=== PATIENT | male | born 1940 | race Asian ===

== ENCOUNTER 2017-12-25 19:26 | Emergency (ER) | payer MEDICARE, MEDICAID ==
[~2017-12-25] VITALS: Ht 147.3 cm; Wt 49.9 kg
[2017-12-25] MEDS ORDERED: ATORVASTATIN CA20 MG ORAL (19:29)
[2017-12-25] MEDS ORDERED: AMLODIPINE BESY10 MG ORAL (19:29)
[2017-12-25] MEDS ORDERED: ATENOLOL50 MG ORAL (19:29)
[2017-12-25] MEDS ORDERED: CLOPIDOGREL75 MG ORAL (19:29)
[2017-12-25 19:40] VITALS: BP 174/62
--- NOTE | 2017-12-25 19:57 | Emergency Room Report ---
History of Present Illness General Chief Complaint: Multiple Trauma/Fall Source: Patient, Medical Record, EMS Present Illness HPI This patient presents from a assisted facility. She was being transferred from her wheelchair to her bed and was dropped onto the floor. She hit the back of her head. She complains of pain in both her hips and her low back. She denies chest pain or shortness of breath. She denies abdominal pain. She has no other complaints. Allergies: Coded Allergies: ASPIRIN (Verified Allergy, Unknown, 12/25/17) Patient History Past Medical History: see triage record, DM, HTN, other - non-ambulatory/ wheelchair bound Social History: Denies: smoking, alcohol use, drug use Reviewed Nursing Documentation: PMH: Agreed; PSxH: Agreed Nursing Documentation-PMH Past Medical History: No History, Except For Hx Hypertension: Yes Hx Diabetes: Yes Review of Systems All Other Systems: negative except mentioned in HPI Physical Exam Vital Signs Date Time Temp Pulse Resp B/P (MAP) Pulse Ox O2 Delivery O2 Flow Rate FiO2 12/25/17 19:18 98.4 70 17 178/85 98 Room Air 98.4 Sp02 EP Interpretation: reviewed, normal General Appearance: no apparent distress, alert, GCS 15, non-toxic Head: normocephalic, atraumatic Eyes: bilateral eye normal inspection, bilateral eye PERRL ENT: hearing grossly normal, normal pharynx, no angioedema, normal voice Neck: full range of motion, supple/symm/no masses Respiratory: chest non-tender, lungs clear, normal breath sounds, no respiratory distress, no retraction, no accessory muscle use, speaking full sentences Cardiovascular #1: regular rate, rhythm, no edema Gastrointestinal: normal bowel sounds, non tender, soft, non-distended, no guarding, no rebound Rectal: deferred Musculoskeletal: normal range of motion Neurologic: alert, oriented x3, responsive, speech normal, other - Non-focal. Hx of LE weakness. Psychiatric: judgement/insight normal, memory normal, mood/affect normal, no suicidal/homicidal ideation Skin: normal color, no rash, warm/dry, well hydrated Medical Decision Making Diagnostic Impression: Primary Impression: Fall ER Course This patient presented with a fall when being transferred from her wheelchair. CT of the pelvis showed no acute findings. CT of the head showed no acute findings. Laboratory workup was reassuring. The patient was returned to the assisted facility. Laboratory Tests Test 12/25/17 21:00 White Blood Count 6.8 K/UL (4.8-10.8) Red Blood Count 3.81 M/UL (4.70-6.10) L Hemoglobin 11.9 G/DL (14.2-18.0) L Hematocrit 34.3 % (42.0-52.0) L Mean Corpuscular Volume 90 FL (80-99) Mean Corpuscular Hemoglobin 31.2 PG (27.0-31.0) H Mean Corpuscular Hemoglobin Concent 34.7 G/DL (32.0-36.0) Red Cell Distribution Width 10.6 % (11.6-14.8) L Platelet Count 349 K/UL (150-450) Mean Platelet Volume 5.0 FL (6.5-10.1) L Neutrophils (%) (Auto) 53.8 % (45.0-75.0) Lymphocytes (%) (Auto) 37.4 % (20.0-45.0) Monocytes (%) (Auto) 6.6 % (1.0-10.0) Eosinophils (%) (Auto) 1.1 % (0.0-3.0) Basophils (%) (Auto) 1.2 % (0.0-2.0) Prothrombin Time Pending Prothrombin Time INR Pending PTT Pending Sodium Level 131 MMOL/L (136-145) L Potassium Level 3.8 MMOL/L (3.5-5.1) Chloride Level 95 MMOL/L (98-107) L Carbon Dioxide Level 30 MMOL/L (21-32) Anion Gap 6 mmol/L (5-15) Blood Urea Nitrogen 18 mg/dL (7-18) Creatinine 0.5 MG/DL (0.55-1.30) L Estimate Glomerular Filtration Rate mL/min (>60) Glucose Level 161 MG/DL (74-106) H Calcium Level 9.0 MG/DL (8.5-10.1) Total Bilirubin Pending Aspartate Amino Transferase (AST) Pending Alanine Aminotransferase (ALT) Pending Alkaline Phosphatase Pending Total Protein Pending Albumin Pending Globulin Pending CT/MRI/US Diagnostic Results CT/MRI/US Diagnostic Results : Imaging Test Ordered: CT head, CT pelvis Impression No acute findings. Specifically no intracranial bleed, mass effect or edema. See official report. Last Vital Signs Date Time Temp Pulse Resp B/P (MAP) Pulse Ox O2 Delivery O2 Flow Rate FiO2 12/25/17 19:40 97.4 62 14 174/62 96 Room Air 97.4 Status: improved Disposition: HOME, SELF-CARE Condition: Improved Moriah Vail DO Dec 25, 2017 19:57
[2017-12-25 21:23] LABS: ANION GAP 6 mmol/L (5-15); BLOOD UREA NITROGEN 18 mg/dL (7-18); CARBON DIOXIDE 30 MMOL/L (21-32); CHLORIDE 95 MMOL/L (98-107); CREATININE 0.5 MG/DL (0.55-1.30); POTASSIUM 3.8 MMOL/L (3.5-5.1); SODIUM 131 MMOL/L (136-145)
[2017-12-25 21:28] LABS: ALANINE AMINOTRANSFERASE 19 U/L (12-78); ALBUMIN 3.5 G/DL (3.4-5.0); ALBUMIN/GLOBULIN RATIO 0.9 (1.0-2.7); ALKALINE PHOSPHATASE 51 U/L (46-116); ASPARTATE AMINO TRANSFERASE 18 U/L (15-37); BILIRUBIN,TOTAL 0.4 MG/DL (0.2-1.0)
[2017-12-25 21:30] LABS: BASOPHILS % (AUTO) 1.2 % (0.0-2.0); EOSINOPHILS % (AUTO) 1.1 % (0.0-3.0); HEMATOCRIT 34.3 % (42.0-52.0); HEMOGLOBIN 11.9 G/DL (14.2-18.0); LYMPHOCYTES % (AUTO) 37.4 % (20.0-45.0); MEAN CORPUSCULAR VOLUME 90 FL (80-99); MONOCYTES % (AUTO) 6.6 % (1.0-10.0); NEUTROPHILS % (AUTO) 53.8 % (45.0-75.0); PLATELET COUNT 349 K/UL (150-450); RED BLOOD COUNT 3.81 M/UL (4.70-6.10); RED CELL DISTRIBUTION WIDTH 10.6 % (11.6-14.8); WHITE BLOOD COUNT 6.8 K/UL (4.8-10.8)
[2017-12-25 22:11] VITALS: BP 143/60
[2017-12-25 22:19] VITALS: BP 143/60
--- NOTE | 2017-12-26 09:17 | Diagnostic Imaging Report ---
Indication: Headache. Head trauma Technique: Contiguous 5 mm thick transaxial imaging of the head obtained in a Siemens Sensation [address] scanner. Soft tissue and bone windows generated. Automatic Exposure Control was utilized. Total Dose length Product (DLP): [address] Dose Index Volume (CTDIvol): 0.15, 70.38 mGy Comparison: none Findings: There is a focus of cystic encephalomalacia in the left occipital lobe consistent with an old infarct. There is a small cystic focus in the posterior aspect of the putamen on the left side likely an old lacunar infarct. There is mild prominence of the ventricles, basal cisterns, and cerebral sulci consistent with atrophy. Moderate, patchy nonspecific, white matter hypoattenuation is noted throughout the brain consistent with chronic small vessel disease. There is no midline shift, edema, acute hemorrhage, mass effect, or abnormal extra-axial fluid collections. Bones and extra osseous soft tissues are unremarkable. Impression: No acute intracranial bleed, mass effect or edema. 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 Nonspecific white matter hypoattenuation probably due to chronic small vessel disease. The CT scanner at [facility] is accredited by the [employer] and the scans are performed using dose optimization techniques as appropriate to a performed exam including Automatic Exposure control.
--- NOTE | 2017-12-26 09:21 | Diagnostic Imaging Report ---
Indication: Pelvic region pain. Trauma Technique: Continuous helical transaxial imaging of the pelvis was obtained from the iliac crest to the pubic symphysis. Coronal 2-D reformats were also obtained. Study obtained in a Siemens sensation [address] Intravenous non-ionic contrast was administered. Total Dose length Product (DLP): 1383.[address] Dose Index Volume (CTDIvol): 70.38 mGy Comparison: None Findings: In the upper coccygeal region there is a slight posterior subluxation of one of the segments. This is not associated with the fracture and may be related to an old injury. Correlate clinically. There is no acute fracture identified. The sacrum and the other osseous structures appear unremarkable. Bones are osteopenic. Osteophyte formation and vacuum phenomenon noted within the sacroiliac joints. There is narrowing of both hip joints consistent with arthrosis. Aortoiliac calcifications are present. There is trabeculation and thickening of the urinary bladder wall with mild dilatation of the lumen. Uterus is absent. IMPRESSION: No acute fracture identified. Malalignment of one of the upper segments within the coccyx may be related to an old injury. Correlate clinically. Generalized osteoporosis. 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 Status post hysterectomy. Chronic cystitis The CT scanner at [facility] is accredited by the [employer] and the scans are performed using dose optimization techniques as appropriate to a performed exam including Automatic Exposure control.
== END 2017-12-25 22:23 ==
LOC: EDBD 19:26 → EMR 20:20
DX: R51 Headache (principal); M54.5 Low back pain; M25.552 Pain in left hip; M25.551 Pain in right hip; I10 Essential (primary) hypertension; E11.9 Type 2 diabetes mellitus without complications; W05.0XXA Fall from non-moving wheelchair, initial encounter; Y92.122 Bedroom in nursing home as the place of occurrence of the external cause; Z88.6 Allergy status to analgesic agent; Z99.3 Dependence on wheelchair
CPT/HCPCS: 36415; 70450; 72192; 80053; 85025; 85610; 85730; 99283

== ENCOUNTER 2018-01-01 12:15 | Inpatient (IN) | payer MEDICARE, MEDICAID ==
[~2018-01-01] VITALS: Ht 162.6 cm; Wt 56.7 kg
[2018-01-01 12:15] VITALS: BP 184/67
[~2018-01-01 12:15] MED LIST: AMLODIPINE BESY10 MG ORAL; ATENOLOL50 MG ORAL; ATORVASTATIN CA20 MG ORAL; CLOPIDOGREL75 MG ORAL
[2018-01-01 13:00] LABS: BASOPHILS % (AUTO) 0.7 % (0.0-2.0); EOSINOPHILS % (AUTO) 1.1 % (0.0-3.0); HEMATOCRIT 38.7 % (42.0-52.0); HEMOGLOBIN 13.4 G/DL (14.2-18.0); LYMPHOCYTES % (AUTO) 32.9 % (20.0-45.0); MEAN CORPUSCULAR VOLUME 89 FL (80-99); MONOCYTES % (AUTO) 5.3 % (1.0-10.0); NEUTROPHILS % (AUTO) 59.9 % (45.0-75.0); PLATELET COUNT 379 K/UL (150-450); RED BLOOD COUNT 4.37 M/UL (4.70-6.10); RED CELL DISTRIBUTION WIDTH 10.7 % (11.6-14.8); WHITE BLOOD COUNT 9.2 K/UL (4.8-10.8)
[2018-01-01 13:05] LABS: ANION GAP 11 mmol/L (5-15); BLOOD UREA NITROGEN 15 mg/dL (7-18); CALCIUM 9.3 MG/DL (8.5-10.1); CARBON DIOXIDE 26 MMOL/L (21-32); CHLORIDE 89 MMOL/L (98-107); CREATININE 0.6 MG/DL (0.55-1.30); POTASSIUM 3.8 MMOL/L (3.5-5.1); SODIUM 126 MMOL/L (136-145)
[2018-01-01 13:18] LABS: ALANINE AMINOTRANSFERASE 23 U/L (12-78); ALBUMIN 3.7 G/DL (3.4-5.0); ALBUMIN/GLOBULIN RATIO 0.9 (1.0-2.7); ALKALINE PHOSPHATASE 56 U/L (46-116); ASPARTATE AMINO TRANSFERASE 17 U/L (15-37); BILIRUBIN,TOTAL 0.3 MG/DL (0.2-1.0); CKMB 2.6 NG/ML (0.0-3.6); CREATINE KINASE 97 U/L (26-308)
[2018-01-01 13:30] VITALS: BP 192/76
[2018-01-01 14:07] LABS: APPEARANCE,URINE SLIGHTLY CLOUDY; BILIRUBIN, URINE NEGATIVE (NEGATIVE); COLOR,URINE PALE YELLOW; GLUCOSE, URINE (UA) NEGATIVE (NEGATIVE); KETONES,URINE NEGATIVE (NEGATIVE); LEUKOCYTE ESTERASE ,URINE 1+ (NEGATIVE); NITRITE,URINE POSITIVE (NEGATIVE); PH,URINE 7 (4.5-8.0); PROTEIN,URINE 3+ (NEGATIVE); UROBILINOGEN,URINE NORMAL MG/DL (0.0-1.0)
--- NOTE | 2018-01-01 14:14 | Diagnostic Imaging Report ---
Indication: Chest pain Technique: XRAY Chest 1v Comparison: None Findings: Heart size within the upper limits for normal. Mediastinal contours are sharp. There are atherosclerotic calcifications in a slightly tortuous thoracic aorta. There is no definite focal airspace consolidation. Costophrenic sulci are sharp. No pneumothorax. No acute osseous abnormality. There are surgical clips in the right upper quadrant. There is a catheter or lead of uncertain etiology projecting over the right chest. Impression: No focal airspace consolidation, pleural effusion or pneumothorax. Catheter or lead projecting over the right lower chest of uncertain etiology. Possible residual pacer lead versus external to the patient. Correlation with physical exam and clinical history is recommended.
[2018-01-01 14:30] VITALS: BP 166/58
--- NOTE | 2018-01-01 15:07 | Emergency Room Report ---
History of Present Illness General Chief Complaint: Chest Pain Source: Patient, Medical Record Present Illness HPI This patient presents from a custodial facility. She has a history of diabetes, hypertension and a lumbar cyst with lower extremity weakness. She is wheelchair-bound. She complains of chest pain. There was no report of fever or chills. No nausea or vomiting. No cough or congestion. No other complaints. Allergies: Coded Allergies: ASPIRIN (Verified Allergy, Unknown, 12/25/17) Patient History Past Medical History: see triage record, DM, HTN, other - Lumbar cyst Past Surgical History: hysterectomy Social History: Denies: smoking, alcohol use, drug use Reviewed Nursing Documentation: PMH: Agreed; PSxH: Agreed Nursing Documentation-PMH Past Medical History: No History, Except For Hx Hypertension: Yes Hx Diabetes: Yes Review of Systems All Other Systems: negative except mentioned in HPI Physical Exam Vital Signs Date Time Temp Pulse Resp B/P (MAP) Pulse Ox O2 Delivery O2 Flow Rate FiO2 01/01/18 12:09 98.0 68 18 170/90 99 Room Air 98.1 Sp02 EP Interpretation: reviewed, normal General Appearance: no apparent distress, alert, GCS 15, non-toxic Head: normocephalic, atraumatic Eyes: bilateral eye normal inspection, bilateral eye PERRL ENT: hearing grossly normal, normal pharynx, no angioedema, normal voice Neck: full range of motion, supple/symm/no masses Respiratory: chest non-tender, lungs clear, normal breath sounds, no respiratory distress, no retraction, no accessory muscle use, speaking full sentences Cardiovascular #1: regular rate, rhythm, no edema Gastrointestinal: normal bowel sounds, non tender, soft, non-distended, no guarding, no rebound Rectal: deferred Musculoskeletal: other - At baseline Neurologic: alert, oriented x3, responsive, speech normal, other - At baseline Psychiatric: judgement/insight normal, memory normal, mood/affect normal, no suicidal/homicidal ideation Skin: warm/dry, well hydrated, other - See RN skin exam Medical Decision Making Diagnostic Impression: Primary Impression: Chest pain ER Course This patient presents with chest pain. She is high risk for acute coronary syndrome. Initial workup is negative, specifically, negative EKG, troponin and chest x-ray. She'll be admitted for further evaluation by cardiology and monitoring. Laboratory Tests Test 01/01/18 12:38 01/01/18 13:30 White Blood Count 9.2 K/UL (4.8-10.8) Red Blood Count 4.37 M/UL (4.70-6.10) L Hemoglobin 13.4 G/DL (14.2-18.0) L Hematocrit 38.7 % (42.0-52.0) L Mean Corpuscular Volume 89 FL (80-99) Mean Corpuscular Hemoglobin 30.7 PG (27.0-31.0) Mean Corpuscular Hemoglobin Concent 34.6 G/DL (32.0-36.0) Red Cell Distribution Width 10.7 % (11.6-14.8) L Platelet Count 379 K/UL (150-450) Mean Platelet Volume 5.4 FL (6.5-10.1) L Neutrophils (%) (Auto) 59.9 % (45.0-75.0) Lymphocytes (%) (Auto) 32.9 % (20.0-45.0) Monocytes (%) (Auto) 5.3 % (1.0-10.0) Eosinophils (%) (Auto) 1.1 % (0.0-3.0) Basophils (%) (Auto) 0.7 % (0.0-2.0) Sodium Level 126 MMOL/L (136-145) L Potassium Level 3.8 MMOL/L (3.5-5.1) Chloride Level 89 MMOL/L (98-107) L Carbon Dioxide Level 26 MMOL/L (21-32) Anion Gap 11 mmol/L (5-15) Blood Urea Nitrogen 15 mg/dL (7-18) Creatinine 0.6 MG/DL (0.55-1.30) Estimate Glomerular Filtration Rate mL/min (>60) Glucose Level 117 MG/DL (74-106) H Calcium Level 9.3 MG/DL (8.5-10.1) Total Bilirubin 0.3 MG/DL (0.2-1.0) Aspartate Amino Transferase (AST) 17 U/L (15-37) Alanine Aminotransferase (ALT) 23 U/L (12-78) Alkaline Phosphatase 56 U/L (46-116) Total Creatine Kinase 97 U/L (26-308) Creatine Kinase MB 2.6 NG/ML (0.0-3.6) Creatine Kinase MB Relative Index 2.6 Troponin I 0.008 ng/mL (0.000-0.056) Total Protein 8.0 G/DL (6.4-8.2) Albumin 3.7 G/DL (3.4-5.0) Globulin 4.3 g/dL Albumin/Globulin Ratio 0.9 (1.0-2.7) L Urine Color Pale yellow Urine Appearance Slightly cloudy Urine pH 7 (4.5-8.0) Urine Specific [place] 1.005 (1.005-1.035) Urine Protein 3+ (NEGATIVE) H Urine Glucose (UA) Negative (NEGATIVE) Urine Ketones Negative (NEGATIVE) Urine Blood 1+ (NEGATIVE) H Urine Nitrite Positive (NEGATIVE) H Urine Bilirubin Negative (NEGATIVE) Urine Urobilinogen Normal MG/DL (0.0-1.0) Urine Leukocyte Esterase 1+ (NEGATIVE) H Urine RBC 2-4 /HPF (0 - 0) H Urine WBC 15-20 /HPF (0 - 0) H Urine Squamous Epithelial Cells Moderate /LPF (NONE/OCC) H Urine Bacteria Many /HPF (NONE) H EKG Diagnostic Results Rate: normal Rhythm: NSR ST Segments: no acute changes Rhythm Strip Diag. Results EP Interpretation: yes Rate: 60's Rhythm: NSR, no PVC's, other Chest X-Ray Diagnostic Results Chest X-Ray Diagnostic Results : Chest X-Ray Ordered: Yes # of Views/Limited/Complete: 1 View Indication: Chest Pain EP Interpretation: No Interpretation: no consolidation, no effusion, no pneumothorax, no acute cardiopulmonary disease Impression: No acute disease Electronically Signed by: Dustin Last Vital Signs Date Time Temp Pulse Resp B/P (MAP) Pulse Ox O2 Delivery O2 Flow Rate FiO2 01/01/18 14:50 166/58 01/01/18 14:30 98.5 64 15 96 Room Air 98.5 Disposition: ADMITTED INPATIENT Condition: Serious Referrals: NON PHYSICIAN (PCP) Moriah Vail DO Jan 01, 2018 15:07
[2018-01-01] MEDS ORDERED: Nitroglycerin Subl 0.4mg tab SL PRN (15:15)
[2018-01-01] MEDS ORDERED: Albuterol/Ipratropium 3ml neb HHN PRN (15:15)
[2018-01-01] MEDS ORDERED: dilTIAZem HCl 25mg/5ml Inj IV PRN (15:15)
[2018-01-01] MEDS ORDERED: Labetalol 5mg/ml 20ml vial IV PRN (15:15)
[2018-01-01] MEDS ORDERED: Enalaprilat 2.5mg/2ml Inj IV PRN (15:15)
[2018-01-01] MEDS ORDERED: Miralax 17gm pkt ORAL PRN (15:15)
[2018-01-01] MEDS ORDERED: METFORMIN HCL500 M1 ORAL (15:57)
[2018-01-01] MEDS ORDERED: CREON DR 24,001 EACH PO (15:57)
[2018-01-01] MEDS ORDERED: DIOVAN320 MG ORAL (15:57)
[2018-01-01] MEDS ORDERED: GLIMEPIRIDE1 MG ORAL (15:57)
[2018-01-01] MEDS ORDERED: TRESIBA FL100 UNIT/1 SQ (15:57)
[2018-01-01 16:21] VITALS: BP 174/89
--- NOTE | 2018-01-01 18:39 | History & Physical ---
History and Physical History & Physicial 77 year old patient presents from an assisted living. She has a history of diabetes, hypertension and presents with chest pain. There was no report of fever or chills. No nausea or vomiting. Patient is a fair historian. Has been having on and off chest pain. Patient inactive and mostly wheelchair bound. Patient without calf pain or dyspnea Allergies: ASPIRIN (Verified Allergy, Unknown, 12/25/17) Past Medical History: DM, HTN, other - Lumbar cyst Past Surgical History: hysterectomy Social History: nonsmoker, or drinker, retired; at assisted living Reviewed of systems: all negative as able Physical WDWN NAD clear breath sounds bilaterally without rhonchi or wheeze [id number] without MRG NABS nontender no HSM no CCE weak with slight confusion Laboratory Tests Test 01/01/18 12:38 01/01/18 13:30 White Blood Count 9.2 K/UL (4.8-10.8) Red Blood Count 4.37 M/UL (4.70-6.10) L Hemoglobin 13.4 G/DL (14.2-18.0) L Hematocrit 38.7 % (42.0-52.0) L Mean Corpuscular Volume 89 FL (80-99) Mean Corpuscular Hemoglobin 30.7 PG (27.0-31.0) Mean Corpuscular Hemoglobin Concent 34.6 G/DL (32.0-36.0) Red Cell Distribution Width 10.7 % (11.6-14.8) L Platelet Count 379 K/UL (150-450) Mean Platelet Volume 5.4 FL (6.5-10.1) L Neutrophils (%) (Auto) 59.9 % (45.0-75.0) Lymphocytes (%) (Auto) 32.9 % (20.0-45.0) Monocytes (%) (Auto) 5.3 % (1.0-10.0) Eosinophils (%) (Auto) 1.1 % (0.0-3.0) Basophils (%) (Auto) 0.7 % (0.0-2.0) Sodium Level 126 MMOL/L (136-145) L Potassium Level 3.8 MMOL/L (3.5-5.1) Chloride Level 89 MMOL/L (98-107) L Carbon Dioxide Level 26 MMOL/L (21-32) Anion Gap 11 mmol/L (5-15) Blood Urea Nitrogen 15 mg/dL (7-18) Creatinine 0.6 MG/DL (0.55-1.30) Estimat Glomerular Filtration Rate mL/min (>60) Glucose Level 117 MG/DL (74-106) H Calcium Level 9.3 MG/DL (8.5-10.1) Total Bilirubin 0.3 MG/DL (0.2-1.0) Aspartate Amino Transf (AST/SGOT) 17 U/L (15-37) Alanine Aminotransferase (ALT/SGPT) 23 U/L (12-78) Alkaline Phosphatase 56 U/L (46-116) Total Creatine Kinase 97 U/L (26-308) Creatine Kinase MB 2.6 NG/ML (0.0-3.6) Creatine Kinase MB Relative Index 2.6 Troponin I 0.008 ng/mL (0.000-0.056) Total Protein 8.0 G/DL (6.4-8.2) Albumin 3.7 G/DL (3.4-5.0) Globulin 4.3 g/dL Albumin/Globulin Ratio 0.9 (1.0-2.7) L Urine Color Pale yellow Urine Appearance Slightly cloudy Urine pH 7 (4.5-8.0) Urine Specific [place] 1.005 (1.005-1.035) Urine Protein 3+ (NEGATIVE) H Urine Glucose (UA) Negative (NEGATIVE) Urine Ketones Negative (NEGATIVE) Urine Blood 1+ (NEGATIVE) H Urine Nitrite Positive (NEGATIVE) H Urine Bilirubin Negative (NEGATIVE) Urine Urobilinogen Normal MG/DL (0.0-1.0) Urine Leukocyte Esterase 1+ (NEGATIVE) H Urine RBC 2-4 /HPF (0 - 0) H Urine WBC 15-20 /HPF (0 - 0) H Urine Squamous Epithelial Cells Moderate /LPF (NONE/OCC) H Urine Bacteria Many /HPF (NONE) H IMPRESSION CP possible ACS DM HTN poor mobility PLAN serial troponins ECG follow up nitrates beta kaitlin venous US heparin SQ cards evaluation impression, plan, and exam edited and reviewed in detail care discussed with Indio Wright MD Jan 01, 2018 18:39
--- NOTE | 2018-01-01 18:39 | General Progress Note ---
Subjective Allergies: Coded Allergies: ASPIRIN (Verified Allergy, Unknown, 12/25/17) Uncoded Allergies: STEROID (Allergy, Severe, rash, 01/01/18) Objective Last 24 Hour Vital Signs Date Time Temp Pulse Resp B/P (MAP) Pulse Ox O2 Delivery O2 Flow Rate FiO2 01/01/18 18:10 174/89 01/01/18 17:00 73 01/01/18 16:34 Room Air 01/01/18 16:21 97.1 85 15 174/89 (117) 94 97.1 01/01/18 16:19 98.3 77 13 145/65 98 Room Air 98.5 01/01/18 14:50 166/58 01/01/18 14:30 98.5 64 15 166/58 96 Room Air 98.5 01/01/18 13:30 67 16 192/76 98 Room Air 01/01/18 12:15 98.6 70 17 184/67 100 Room Air 98.6 01/01/18 12:15 70 17 Room Air 01/01/18 12:09 98.0 68 18 170/90 99 Room Air 98.1 Laboratory Tests 01/01/18 12:38: White Blood Count 9.2, Red Blood Count 4.37L, Hemoglobin 13.4L, Hematocrit 38.7L , Mean Corpuscular Volume 89, Mean Corpuscular Hemoglobin 30.7, Mean Corpuscular Hemoglobin Concent 34.6, Red Cell Distribution Width 10.7L, Platelet Count 379, Mean Platelet Volume 5.4L, Neutrophils (%) (Auto) 59.9, Lymphocytes (%) (Auto) 32.9, Monocytes (%) (Auto) 5.3, Eosinophils (%) (Auto) 1.1, Basophils (%) (Auto) 0.7, Sodium Level 126L, Potassium Level 3.8, Chloride Level 89L, Carbon Dioxide Level 26, Anion Gap 11, Blood Urea Nitrogen 15, Creatinine 0.6, Estimat Glomerular Filtration Rate , Glucose Level 117H, Calcium Level 9.3, Total Bilirubin 0.3, Aspartate Amino Transf (AST/SGOT) 17, Alanine Aminotransferase (ALT/SGPT) 23, Alkaline Phosphatase 56, Total Creatine Kinase 97, Creatine Kinase MB 2.6, Creatine Kinase MB Relative Index 2.6, Troponin I 0.008, Total Protein 8.0, Albumin 3.7, Globulin 4.3, Albumin/ Globulin Ratio 0.9L 01/01/18 13:30: Urine Color Pale yellow, Urine Appearance Slightly cloudy, Urine pH 7, Urine Specific [place] 1.005, Urine Protein 3+H, Urine Glucose (UA) Negative, Urine Ketones Negative, Urine Blood 1+H, Urine Nitrite PositiveH, Urine Bilirubin Negative, Urine Urobilinogen Normal, Urine Leukocyte Esterase 1+H, Urine RBC 2- 4H, Urine WBC 15-20H, Urine Squamous Epithelial Cells ModerateH, Urine Bacteria ManyH Height (Feet): 5 Height (Inches): 4.00 Weight (Pounds): 150 Indio Mckeon MD Jan 01, 2018 18:39
[2018-01-01] MEDS ORDERED: Milk of Magnesia 30ml Ud ORAL PRN (19:30)
[2018-01-01 20:00] VITALS: BP 140/73
[2018-01-01] MEDS: Heparin 5000 units/ml inj SUBQ SCH (21:26)
[2018-01-01] MEDS: Nitroglycerin 2% oint pkt TOPIC SCH (21:27)
[2018-01-01] MEDS: NovoLOG Insulin Flexpen SUBQ SCH (22:04)
--- NOTE | 2018-01-01 23:45 | Consultation ---
DATE OF CONSULTATION: 01/01/2018 CARDIOLOGY CONSULTATION CONSULTING PHYSICIAN: Yimi Salazar M.D. REQUESTING PHYSICIAN: Indio Mckeon M.D. REASON FOR CONSULTATION: Chest pain and hypertensive urgency. HISTORY OF PRESENT ILLNESS: This is a 77-year-old [place] female. She resides at an assisted living facility. She is wheelchair-bound predominantly due to lumbar cyst. She has multiple risk factors for accelerated coronary artery disease and presents to the hospital with complaints of chest pain and accompanied by severely elevated blood pressure readings. The patient is not a very detailed historian. Records are reviewed and available. Caregivers are interviewed further for additional data. ALLERGIES: The patient has an allergy to aspirin. MEDICATIONS: Her medications prior to admission are reviewed and reconciled. FAMILY HISTORY: Noncontributory. SOCIAL HISTORY: She does not drink alcohol and has never smoked or used illicit drugs. PAST MEDICAL HISTORY: Insulin-requiring diabetes mellitus, hypertension, degenerative disk disease, lumbar cyst, prior hysterectomy, osteoarthritis, and hyperlipidemia PHYSICAL EXAMINATION: GENERAL: This is a well developed, well nourished, appears stated age, in no acute distress. VITAL SIGNS: Blood pressure 174/89, pulse 85, respiratory rate 15, and afebrile. HEENT: Conjunctivae pink. Sclerae anicteric. Oropharynx clear. Mucous membranes moist. NECK: Supple. Jugular venous pressure normal. LUNGS: Clear. Chest wall without deformity. No breast masses. CARDIAC: Regular rhythm and rate. Normal S1, S2 with a fourth heart sound and a 1/6 systolic murmur at the apex. ABDOMEN: Soft and nontender. EXTREMITIES: Good pulses. No edema. Strength is diminished in the lower extremities. DIAGNOSTIC AND LABORATORY DATA: Chest x-ray with no acute process, but it is a poor film due to external artifact. EKG reveals sinus rhythm at 64 beats per minute with no acute ST-T wave changes. Urinalysis with 15 to 20 white cells. Sodium 126, potassium 3.8, chloride 89, bicarb 26, BUN 15, creatinine 0.6. Troponin negative. White count 9.2, hemoglobin 13.4. IMPRESSION: 1. Acute coronary syndrome. 2. Hypertensive urgency. 3. Hyponatremia. 4. Hypochloremia, 5. Possible hypovolemia. 6. Insulin-requiring diabetes mellitus. 7. History of hyperlipidemia. 8. Urinary tract infection. PLAN: 1. Antiplatelet therapy. 2. Cardiac monitoring. 3. Titrate antihypertensives including beta-kaitlin. 4. Use Plavix in view of aspirin allergy. 5. Serial troponin levels. 6. Check lipid panel and thyroid function. 7. Further recommendations to follow. Yimi Salazar M.D. DR: DORYS JOB#: [id number] CC:
[2018-01-02] VITALS: BP 120/65
[2018-01-02 04:00] VITALS: BP 110/50
[2018-01-02] MEDS: Nitroglycerin 2% oint pkt TOPIC SCH (05:56)
[2018-01-02] MEDS: NovoLOG Insulin Flexpen SUBQ SCH ×4 (06:11→20:54)
[2018-01-02 08:00] LABS: BASOPHILS % (AUTO) 0.6 % (0.0-2.0); EOSINOPHILS % (AUTO) 1.1 % (0.0-3.0); HEMATOCRIT 33.5 % (37.0-47.0); HEMOGLOBIN 11.8 G/DL (12.0-16.0); LYMPHOCYTES % (AUTO) 28.5 % (20.0-45.0); MEAN CORPUSCULAR VOLUME 89 FL (80-99); MONOCYTES % (AUTO) 6.6 % (1.0-10.0); NEUTROPHILS % (AUTO) 63.2 % (45.0-75.0); PLATELET COUNT 304 K/UL (150-450); RED BLOOD COUNT 3.77 M/UL (4.20-5.40); RED CELL DISTRIBUTION WIDTH 10.6 % (11.6-14.8); WHITE BLOOD COUNT 6.3 K/UL (4.8-10.8)
[2018-01-02 08:06] VITALS: BP 119/58
[2018-01-02] MEDS: Metoprolol 25mg tab ORAL SCH ×2 (08:14→20:50)
[2018-01-02] MEDS: Heparin 5000 units/ml inj SUBQ SCH ×2 (08:15→20:53)
[2018-01-02 08:16] LABS: INR 1.1 (0.9-1.1)
--- NOTE | 2018-01-02 08:24 | General Progress Note ---
Assessment/Plan Assessment/Plan IMPRESSION CP possible ACS DM HTN poor mobility PLAN serial troponins noted ECG follow up nitrates ? taper beta kaitlin venous US pending heparin SQ cards evaluation noted impression, plan, and exam edited and reviewed in detail care discussed with RN Subjective Allergies: Coded Allergies: ASPIRIN (Verified Allergy, Unknown, 12/25/17) Uncoded Allergies: STEROID (Allergy, Severe, rash, 01/01/18) Subjective no cp d/w heel cutter comfortable Objective Last 24 Hour Vital Signs Date Time Temp Pulse Resp B/P (MAP) Pulse Ox O2 Delivery O2 Flow Rate FiO2 01/02/18 08:14 66 119/58 01/02/18 08:14 66 119/58 01/02/18 08:14 66 119/58 01/02/18 08:06 98.4 66 18 119/58 (78) 95 98.4 01/02/18 05:56 105/48 01/02/18 04:00 97.0 64 18 110/50 (70) 96 97.0 01/02/18 04:00 65 01/02/18 00:00 98.0 70 20 120/65 (83) 96 98.0 01/02/18 00:00 69 01/01/18 21:27 140/73 01/01/18 21:00 Room Air 01/01/18 20:00 98.2 71 20 140/73 (95) 96 98.2 01/01/18 20:00 71 01/01/18 18:10 174/89 01/01/18 17:00 73 01/01/18 16:34 Room Air 01/01/18 16:21 97.1 85 15 174/89 (117) 94 97.1 01/01/18 16:19 98.3 77 13 145/65 98 Room Air 98.5 01/01/18 14:50 166/58 01/01/18 14:30 98.5 64 15 166/58 96 Room Air 98.5 01/01/18 13:30 67 16 192/76 98 Room Air 01/01/18 12:15 98.6 70 17 184/67 100 Room Air 98.6 01/01/18 12:15 70 17 Room Air 01/01/18 12:09 98.0 68 18 170/90 99 Room Air 98.1 Intake and Output 01/01/18 01/02/18 19:00 07:00 Intake Total 120 ml Output Total 150 ml Balance -150 ml 120 ml Intake Oral 120 ml Output Urine Total 150 ml # Voids 1 Laboratory Tests 01/01/18 12:38: White Blood Count 9.2, Red Blood Count 4.37L, Hemoglobin 13.4L, Hematocrit 38.7L , Mean Corpuscular Volume 89, Mean Corpuscular Hemoglobin 30.7, Mean Corpuscular Hemoglobin Concent 34.6, Red Cell Distribution Width 10.7L, Platelet Count 379, Mean Platelet Volume 5.4L, Neutrophils (%) (Auto) 59.9, Lymphocytes (%) (Auto) 32.9, Monocytes (%) (Auto) 5.3, Eosinophils (%) (Auto) 1.1, Basophils (%) (Auto) 0.7, Sodium Level 126L, Potassium Level 3.8, Chloride Level 89L, Carbon Dioxide Level 26, Anion Gap 11, Blood Urea Nitrogen 15, Creatinine 0.6, Estimat Glomerular Filtration Rate , Glucose Level 117H, Calcium Level 9.3, Total Bilirubin 0.3, Aspartate Amino Transf (AST/SGOT) 17, Alanine Aminotransferase (ALT/SGPT) 23, Alkaline Phosphatase 56, Total Creatine Kinase 97, Creatine Kinase MB 2.6, Creatine Kinase MB Relative Index 2.6, Troponin I 0.008, Total Protein 8.0, Albumin 3.7, Globulin 4.3, Albumin/ Globulin Ratio 0.9L 01/01/18 13:30: Urine Color Pale yellow, Urine Appearance Slightly cloudy, Urine pH 7, Urine Specific Dunbar 1.005, Urine Protein 3+H, Urine Glucose (UA) Negative, Urine Ketones Negative, Urine Blood 1+H, Urine Nitrite PositiveH, Urine Bilirubin Negative, Urine Urobilinogen Normal, Urine Leukocyte Esterase 1+H, Urine RBC 2- 4H, Urine WBC 15-20H, Urine Squamous Epithelial Cells ModerateH, Urine Bacteria ManyH 01/01/18 18:40: Troponin I 0.011 01/02/18 07:40: White Blood Count 6.3, Red Blood Count 3.77L, Hemoglobin 11.8L, Hematocrit 33.5L , Mean Corpuscular Volume 89, Mean Corpuscular Hemoglobin 31.5H, Mean Corpuscular Hemoglobin Concent 35.3, Red Cell Distribution Width 10.6L, Platelet Count 304, Mean Platelet Volume 5.2L, Neutrophils (%) (Auto) 63.2, Lymphocytes (%) (Auto) 28.5, Monocytes (%) (Auto) 6.6, Eosinophils (%) (Auto) 1.1, Basophils (%) (Auto) 0.6, Sodium Level [Pending], Potassium Level [Pending] , Chloride Level [Pending], Carbon Dioxide Level [Pending], Blood Urea Nitrogen [Pending], Creatinine [Pending], Estimat Glomerular Filtration Rate [Pending], Glucose Level [Pending], Calcium Level [Pending], Prothrombin Time 11.3, Prothromb Time International Ratio 1.1, Activated Partial Thromboplast Time 29, Magnesium Level [Pending], C-Reactive Protein, Quantitative [Pending], Pro-B- Type Natriuretic Peptide [Pending], Triglycerides Level [Pending], Cholesterol Level [Pending], LDL Cholesterol [Pending], HDL Cholesterol [Pending], Cholesterol/HDL Ratio [Pending], Thyroid Stimulating Hormone (TSH) [Pending] Height (Feet): 5 Height (Inches): 4.00 Weight (Pounds): 150 Objective WDWN NAD clear breath sounds bilaterally without rhonchi or wheeze [id number] without MRG NABS nontender no HSM no CCE nonfocal Indio Mckeon MD Jan 02, 2018 08:24
[2018-01-02 08:28] LABS: ANION GAP 5 mmol/L (5-15); BLOOD UREA NITROGEN 18 mg/dL (7-18); CALCIUM 8.9 MG/DL (8.5-10.1); CARBON DIOXIDE 29 MMOL/L (21-32); CHLORIDE 89 MMOL/L (98-107); CREATININE 0.7 MG/DL (0.55-1.30); POTASSIUM 4.1 MMOL/L (3.5-5.1); SODIUM 123 MMOL/L (136-145)
[2018-01-02 08:29] LABS: CHOLESTEROL 116 MG/DL (< 200); HDL CHOLESTEROL 57 MG/DL (40-60); TRIGLYCERIDES 65 MG/DL (30-150)
[2018-01-02] MEDS ORDERED: Aspirin Baby 81mg ORAL SCH (09:00)
--- NOTE | 2018-01-02 13:15 | Cardiology Report ---
APPROVED REPORT EXAM: Two-dimensional and M-mode echocardiogram with Doppler and color Doppler. INDICATION LV function M-Mode DIMENSIONS IVSd1.4 (0.7-1.1cm)Left Atrium (MM)2.8 (1.6-4.0cm) LVDd4.0 (3.5-5.6cm)Aortic Root3.2 (2.0-3.7cm) PWd1.0 (0.7-1.1cm)Aortic Cusp Exc.1.7 (1.5-2.0cm) LVDs2.1 (2.5-4.0cm) PWs1.1 cm Normal left ventricular chamber size, systolic function and wall motion. Left ventricular ejection fraction estimated to be 65-70 %. Mild left ventricular hypertrophy. Anterior Echo-free space, may be due to pericardial fat or effusion. All other cardiac chamber sizes are within normal limits. Focal aortic valve sclerosis with adequate cusp excursion. Thickened mitral valve leaflets with normal excursion. Mitral annulus and aortic root calcification. Pulmonic valve not well visualized. Normal tricuspid valve structure. IVC at normal size with physiologic collapse. A color flow and spectral Doppler study was performed and revealed: Trace aortic regurgitation. Trace mitral regurgitation. Mitral diastolic velocities suggest reduced left ventricular relaxation c/w mild LV diastolic dysfunction (Grade I ). Trace tricuspid regurgitation. Tricuspid systolic velocities suggests peak right ventricular systolic pressure of 15 mmHg. Mild pulmonic regurgitation present.
[2018-01-02] MEDS ORDERED: Nitroglycerin 2% oint pkt TOPIC SCH (14:00)
--- NOTE | 2018-01-02 14:13 | Cardiology Report ---
APPROVED REPORT EKG Measurement Heart [id number] TN [id number] Sinus rhythm with premature atrial complexes Right bundle branch block Abnormal ECG
--- NOTE | 2018-01-02 14:22 | Cardiology Report ---
APPROVED REPORT EKG Measurement Heart [id number] Sinus rhythm with premature atrial complexes Right bundle branch block Abnormal ECG
[2018-01-02 16:00] VITALS: BP 115/55
[2018-01-02] MEDS ORDERED: Levofloxacin 250mg/D5W 50ml IVPB SCH (18:00)
[2018-01-02 20:00] VITALS: BP 107/52
--- NOTE | 2018-01-02 22:15 | Progress Note ---
DATE: 01/02/2018 CARDIOLOGY PROGRESS NOTE SUBJECTIVE: The patient has better control of blood pressure today. She is more alert. No chest pain noted. Troponin level was negative. Monitored rhythm, sinus. No ectopic beats. OBJECTIVE: VITAL SIGNS: Blood pressure 119/58, pulse 66, respirations 18, and afebrile. NECK: Supple. Jugular venous pressure normal. LUNGS: Clear. CARDIAC: Regular rhythm and rate. Normal S1 and S2 with a fourth heart sound. ABDOMEN: Soft, nontender. No edema. LABORATORY AND DIAGNOSTIC DATA: White count 6.3 and hemoglobin 11.8. Magnesium 1.9. Pro-natriuretic peptide 205. Sodium 123, potassium 4.1, chloride 89, bicarbonate 29, BUN 18, creatinine 0.7 and glucose 213. IMPRESSION: 1. Acute coronary syndrome, now stabilized, anginal pattern. 2. Hypertensive urgency, now resolved with low range of blood pressure. 3. Diastolic dysfunction with no clinical signs of acute congestive heart failure. 4. Hyponatremia. 5. Hypochloremia. PLAN: 1. No aspirin in view of allergy. 2. Continue Plavix. 3. Continue antianginal regimen, but decrease dose of amlodipine in view of low range of blood pressure. 4. Hydrate with saline and monitor clinical parameters including volume status closely. 5. Myocardial perfusion scan to follow once electrolyte abnormalities have been corrected. Yimi Salazar M.D. DR: HIREN JOB#: [id number] CC:
[2018-01-03] VITALS: BP 126/50
[2018-01-03 04:00] VITALS: BP 134/56
[2018-01-03] MEDS: NovoLOG Insulin Flexpen SUBQ SCH ×4 (06:11→20:30)
[2018-01-03 07:11] LABS: BASOPHILS % (AUTO) 0.8 % (0.0-2.0); EOSINOPHILS % (AUTO) 1.1 % (0.0-3.0); HEMATOCRIT 36.2 % (37.0-47.0); HEMOGLOBIN 12.7 G/DL (12.0-16.0); LYMPHOCYTES % (AUTO) 35.4 % (20.0-45.0); MEAN CORPUSCULAR VOLUME 90 FL (80-99); NEUTROPHILS % (AUTO) 55.8 % (45.0-75.0); PLATELET COUNT 325 K/UL (150-450); RED BLOOD COUNT 4.03 M/UL (4.20-5.40); RED CELL DISTRIBUTION WIDTH 10.9 % (11.6-14.8); WHITE BLOOD COUNT 6.2 K/UL (4.8-10.8)
[2018-01-03 07:26] LABS: ALANINE AMINOTRANSFERASE 19 U/L (12-78); ALBUMIN 3.3 G/DL (3.4-5.0); ALBUMIN/GLOBULIN RATIO 0.8 (1.0-2.7); ALKALINE PHOSPHATASE 50 U/L (46-116); ANION GAP 6 mmol/L (5-15); ASPARTATE AMINO TRANSFERASE 14 U/L (15-37); BILIRUBIN,TOTAL 0.4 MG/DL (0.2-1.0); BLOOD UREA NITROGEN 16 mg/dL (7-18); CALCIUM 8.8 MG/DL (8.5-10.1); CARBON DIOXIDE 28 MMOL/L (21-32); CHLORIDE 98 MMOL/L (98-107); CREATININE 0.8 MG/DL (0.55-1.30); POTASSIUM 3.8 MMOL/L (3.5-5.1); SODIUM 132 MMOL/L (136-145)
[2018-01-03 08:00] VITALS: BP 153/69
[2018-01-03] MEDS: Heparin 5000 units/ml inj SUBQ SCH ×2 (08:53→20:30)
[2018-01-03] MEDS: Metoprolol 25mg tab ORAL SCH ×2 (08:54→20:27)
--- NOTE | 2018-01-03 11:27 | General Progress Note ---
Assessment/Plan Problem List: (1) UTI (urinary tract infection) ICD Codes: N39.0 - Urinary tract infection, site not specified SNOMED: 65773011 (2) HTN (hypertension), malignant ICD Codes: I10 - Essential (primary) hypertension SNOMED: 98548250 (3) Chest pain ICD Codes: R07.9 - Chest pain, unspecified SNOMED: 35171603 Status: stable, progressing Assessment/Plan decrease ivf repeat labs abx antiplt rx stress test per cards Subjective ROS Limited/Unobtainable: No Constitutional: Reports: malaise, weakness HEENT: Reports: no symptoms Cardiovascular: Reports: no symptoms Respiratory: Reports: no symptoms Gastrointestinal/Abdominal: Reports: no symptoms Genitourinary: Reports: no symptoms Neurologic/Psychiatric: Reports: no symptoms Endocrine: Reports: no symptoms Hematologic/Lymphatic: Reports: no symptoms Allergies: Coded Allergies: ASPIRIN (Verified Allergy, Unknown, 12/25/17) Uncoded Allergies: STEROID (Allergy, Severe, rash, 01/01/18) All Systems: reviewed and negative except above Subjective no new complaints. bp better controlled. no fever or chills. On iv abx for uti Objective Last 24 Hour Vital Signs Date Time Temp Pulse Resp B/P (MAP) Pulse Ox O2 Delivery O2 Flow Rate FiO2 01/03/18 09:00 Room Air 01/03/18 08:55 76 153/69 01/03/18 08:54 76 153/69 01/03/18 08:54 76 153/69 01/03/18 08:00 97.6 76 18 153/69 (97) 96 97.6 01/03/18 08:00 70 01/03/18 04:00 97.7 62 18 134/56 (82) 95 97.7 01/03/18 04:00 62 01/03/18 00:00 97.0 62 18 126/50 (75) 95 97.0 01/02/18 21:00 Room Air 01/02/18 20:50 69 107/52 01/02/18 20:00 69 01/02/18 20:00 98.1 73 18 107/52 (70) 94 98.1 01/02/18 16:00 66 01/02/18 16:00 98.1 70 18 115/55 (75) 96 98.1 01/02/18 14:00 100/58 01/02/18 12:00 68 Intake and Output 01/02/18 01/03/18 19:00 07:00 Intake Total 360 ml Balance 360 ml Intake Oral 360 ml # Voids 3 2 Laboratory Tests 01/02/18 15:18: Troponin I 0.015 01/03/18 06:00: Urine Osmolality 225L, Urine Random Sodium 32 01/03/18 06:15: White Blood Count 6.2, Red Blood Count 4.03L, Hemoglobin 12.7, Hematocrit 36.2L , Mean Corpuscular Volume 90, Mean Corpuscular Hemoglobin 31.4H, Mean Corpuscular Hemoglobin Concent 35.0, Red Cell Distribution Width 10.9L, Platelet Count 325, Mean Platelet Volume 5.3L, Neutrophils (%) (Auto) 55.8, Lymphocytes (%) (Auto) 35.4, Monocytes (%) (Auto) 7.0, Eosinophils (%) (Auto) 1.1, Basophils (%) (Auto) 0.8, Sodium Level 132L, Potassium Level 3.8, Chloride Level 98, Carbon Dioxide Level 28, Anion Gap 6, Blood Urea Nitrogen 16, Creatinine 0.8, Estimat Glomerular Filtration Rate , Glucose Level 168H, Calcium Level 8.8, Magnesium Level 2.0, Total Bilirubin 0.4, Aspartate Amino Transf (AST/SGOT) 14L, Alanine Aminotransferase (ALT/SGPT) 19, Alkaline Phosphatase 50, Total Protein 7.2, Albumin 3.3L, Globulin 3.9, Albumin/Globulin Ratio 0.8L Height (Feet): 5 Height (Inches): 4.00 Weight (Pounds): 125 General Appearance: WD/WN, alert Neck: supple Cardiovascular: normal rate, regular rhythm Respiratory/Chest: chest wall non-tender, lungs clear, normal breath sounds, no respiratory distress Abdomen: normal bowel sounds, non tender, soft, no organomegaly Edema: no edema noted Arm (L), no edema noted Arm (R), no edema noted Leg (L), no edema noted Leg (R), no edema noted Pedal (L), no edema noted Pedal (R), no edema noted Generalized Eldon Simon MD Jan 03, 2018 11:26
[2018-01-03 12:00] VITALS: BP 135/68
[2018-01-03 16:00] VITALS: BP 146/75
[2018-01-03] MEDS ORDERED: cefTRIAXone 1gm/D5W 55ml IVPB SCH ×2 (18:00)
[2018-01-03 20:00] VITALS: BP 149/75
--- NOTE | 2018-01-03 23:45 | Progress Note ---
DATE: 01/03/2018 CARDIOLOGY PROGRESS NOTE SUBJECTIVE: Blood pressure control improved. No chest pain. No shortness of breath. OBJECTIVE: VITAL SIGNS: Blood pressure 149/75, pulse 64, respiratory rate 21, afebrile. NECK: Supple. Jugular venous pressure normal. LUNGS: Clear. CARDIAC: Regular rhythm and rate. Normal S1, S2 with a fourth heart sound and 1/6 systolic murmur at the apex. ABDOMEN: Soft. EXTREMITIES: No edema. LABORATORY DATA: Urine culture, Klebsiella pneumonia. White count 6.2, hemoglobin 12.7. Sodium 132, potassium 3.8, BUN 16, creatinine 0.8. Albumin 3.3. Troponin is negative. IMPRESSION: 1. Hyponatremia, resolving. 2. Hypovolemia and dehydration, correcting. 3. Hypochloremia, resolved. 4. Type 2 diabetes mellitus with mild hyperglycemia. 5. Mild protein-calorie malnutrition. 6. Hypertensive urgency, resolved. 7. Hypertensive heart disease with stable blood pressure. No signs of acute congestive heart failure. PLAN: 1. Discontinue IV fluids. 2. Monitor electrolytes. 3. Continue current cardiovascular regimen. 4. Avoid diuretics. 5. Antimicrobials per primary care physician. Yimi Salazar M.D. DR: SHERRON/KAYCE JOB#: [id number] CC:
[2018-01-04] VITALS: BP 105/51
[2018-01-04 04:00] VITALS: BP 148/70
[2018-01-04] MEDS: NovoLOG Insulin Flexpen SUBQ SCH ×4 (05:42→20:34)
[2018-01-04 08:00] VITALS: BP 154/68
[2018-01-04 08:08] LABS: ALANINE AMINOTRANSFERASE 18 U/L (12-78); ALBUMIN 3.2 G/DL (3.4-5.0); ALBUMIN/GLOBULIN RATIO 0.8 (1.0-2.7); ALKALINE PHOSPHATASE 48 U/L (46-116); ANION GAP 4 mmol/L (5-15); ASPARTATE AMINO TRANSFERASE 18 U/L (15-37); BILIRUBIN,TOTAL 0.3 MG/DL (0.2-1.0); BLOOD UREA NITROGEN 16 mg/dL (7-18); CALCIUM 8.6 MG/DL (8.5-10.1); CARBON DIOXIDE 28 MMOL/L (21-32); CHLORIDE 101 MMOL/L (98-107); CREATININE 0.5 MG/DL (0.55-1.30); SODIUM 133 MMOL/L (136-145)
[2018-01-04] MEDS: Heparin 5000 units/ml inj SUBQ SCH ×2 (08:12→20:35)
[2018-01-04] MEDS: Metoprolol 25mg tab ORAL SCH ×2 (08:13→20:31)
--- NOTE | 2018-01-04 08:32 | General Progress Note ---
Assessment/Plan Assessment/Plan IMPRESSION CP possible ACS DM HTN poor mobility UTI PLAN cards evaluation noted ancef given may give cipro on discharge d/w case management as to dc planning impression, plan, and exam edited and reviewed in detail care discussed with RN Subjective Allergies: Coded Allergies: ASPIRIN (Verified Allergy, Unknown, 12/25/17) Uncoded Allergies: STEROID (Allergy, Severe, rash, 01/01/18) Subjective stable and comfortable Objective Last 24 Hour Vital Signs Date Time Temp Pulse Resp B/P (MAP) Pulse Ox O2 Delivery O2 Flow Rate FiO2 01/04/18 08:13 66 154/68 01/04/18 08:13 66 154/68 01/04/18 08:12 66 154/68 01/04/18 08:00 98.4 66 18 154/68 (96) 96 98.4 01/04/18 04:00 98.2 64 20 148/70 (96) 96 98.2 01/04/18 04:00 66 01/04/18 00:00 69 01/04/18 00:00 98.0 85 20 105/51 (69) 98 98.0 01/03/18 21:00 Room Air 01/03/18 20:27 71 149/75 01/03/18 20:00 64 01/03/18 20:00 98.2 71 21 149/75 (99) 95 98.2 01/03/18 16:00 97.9 64 18 146/75 (98) 94 97.9 01/03/18 16:00 63 01/03/18 12:00 62 01/03/18 12:00 97.2 62 18 135/68 (90) 94 97.2 01/03/18 09:00 Room Air 01/03/18 08:55 76 153/69 01/03/18 08:54 76 153/69 01/03/18 08:54 76 153/69 Intake and Output 01/03/18 01/04/18 19:00 07:00 Intake Total 650 ml 270 ml Balance 650 ml 270 ml Intake Oral 600 ml 120 ml IV Total 50 ml 150 ml # Voids 3 2 Laboratory Tests 01/04/18 07:20: Sodium Level 133L, Potassium Level 4.0, Chloride Level 101, Carbon Dioxide Level 28, Anion Gap 4L, Blood Urea Nitrogen 16, Creatinine 0.5L, Estimat Glomerular Filtration Rate , Glucose Level 196H, Calcium Level 8.6, Total Bilirubin 0.3, Aspartate Amino Transf (AST/SGOT) 18, Alanine Aminotransferase ( ALT/SGPT) 18, Alkaline Phosphatase 48, Total Protein 7.3, Albumin 3.2L, Globulin 4.1, Albumin/Globulin Ratio 0.8L Height (Feet): 5 Height (Inches): 4.00 Weight (Pounds): 125 Objective WDWN NAD clear breath sounds bilaterally without rhonchi or wheeze [id number] without MRG NABS nontender no HSM no CCE nonfocal Indio Mckeon MD Jan 04, 2018 08:32
[2018-01-04] MEDS ORDERED: ceFAZolin 1gm/50ml Premix 50 ML IV SCH (09:00)
[2018-01-04] MEDS ORDERED: ceFAZolin sod 1 GM in D5W 55 ML IVPB SCH (09:00)
[2018-01-04] MEDS: Cephalexin 500mg cap ORAL SCH ×3 (09:01→17:14)
[2018-01-04 12:00] VITALS: BP 159/70
[2018-01-04] MEDS ORDERED: Fleet's Enema 133ml RECTAL SCH (14:00)
[2018-01-04 16:00] VITALS: BP 153/76
--- NOTE | 2018-01-04 16:30 | Progress Note ---
DATE: 01/04/2018 CARDIOLOGY PROGRESS NOTE SUBJECTIVE: The patient without distress. No chest pain. No shortness of breath. OBJECTIVE: VITAL SIGNS: Blood pressure 154/68, heart rate 66, respiratory rate 18, and afebrile. NECK: Supple. LUNGS: Clear. CARDIAC: Regular. Normal S1 and,S2 with a fourth heart sound. ABDOMEN: Soft. EXTREMITIES: No edema. LABORATORY AND DIAGNOSTIC DATA: Sodium is 133, potassium 4, bicarbonate 28, BUN 16 and creatinine 0.5. Albumin 3.2. IMPRESSION: 1. Hyponatremia, corrected. 2. Hypovolemia and dehydration, resolved. 3. Type 2 diabetes mellitus with improved blood glucose. 4. Mild protein-calorie malnutrition, on replacement therapy. 5. Hypertensive heart disease, now with stabilizing blood pressure range only slightly elevated and no signs of acute congestive heart failure. 6. Urinary tract infection. PLAN: 1. Antimicrobials. 2. No diuretics. 3. Antihypertensive regimen adjusted. 4. Stable for outpatient management. Yimi Salazar M.D. DR: HIREN JOB#: [id number] CC:
[2018-01-04 20:00] VITALS: BP 157/89
[2018-01-05] VITALS: BP 165/73
[2018-01-05 04:00] VITALS: BP 147/76
[2018-01-05] MEDS: NovoLOG Insulin Flexpen SUBQ SCH ×2 (06:16→13:01)
[2018-01-05 08:00] VITALS: BP 160/72
[2018-01-05] MEDS: Cephalexin 500mg cap ORAL SCH ×2 (08:13→12:59)
[2018-01-05] MEDS: Metoprolol 25mg tab ORAL SCH (08:14)
[2018-01-05] MEDS: Heparin 5000 units/ml inj SUBQ SCH (08:16)
--- NOTE | 2018-01-05 08:19 | General Progress Note ---
Assessment/Plan Assessment/Plan IMPRESSION CP possible ACS DM HTN poor mobility UTI PLAN cards evaluation noted keflex given d/w case management as to dc planning impression, plan, and exam edited and reviewed in detail care discussed with RN Subjective Allergies: Coded Allergies: ASPIRIN (Verified Allergy, Unknown, 12/25/17) Uncoded Allergies: STEROID (Allergy, Severe, rash, 01/01/18) Subjective stable and comfortable wants full code Objective Last 24 Hour Vital Signs Date Time Temp Pulse Resp B/P (MAP) Pulse Ox O2 Delivery O2 Flow Rate FiO2 01/05/18 04:00 63 01/05/18 04:00 97.2 65 20 147/76 (99) 95 97.2 01/05/18 00:00 97.1 68 20 165/73 (103) 95 97.1 01/05/18 00:00 66 01/04/18 21:00 Room Air 01/04/18 20:31 63 157/89 01/04/18 20:00 61 01/04/18 20:00 97.0 63 20 157/89 (111) 95 97.0 01/04/18 16:00 58 01/04/18 16:00 98.4 60 18 153/76 (101) 96 98.4 01/04/18 12:00 97.8 59 18 159/70 (99) 96 97.8 01/04/18 12:00 61 01/04/18 09:00 Room Air Intake and Output 01/04/18 01/05/18 19:00 07:00 Intake Total 840 ml 120 ml Balance 840 ml 120 ml Intake Oral 840 ml 120 ml # Voids 3 3 # Bowel Movements 2 Labs Test 01/02/18 15:18 01/03/18 06:00 01/03/18 06:15 01/04/18 07:20 Troponin I 0.015 ng/mL (0.000-0.056) Urine Osmolality 225 mOsm/kg (429-449) Urine Random Sodium 32 mmol/L (20-110) White Blood Count 6.2 K/UL (4.8-10.8) Red Blood Count 4.03 M/UL (4.20-5.40) Hemoglobin 12.7 G/DL (12.0-16.0) Hematocrit 36.2 % (37.0-47.0) Mean Corpuscular Volume 90 FL (80-99) Mean Corpuscular Hemoglobin 31.4 PG (27.0-31.0) Mean Corpuscular Hemoglobin Concent 35.0 G/DL (32.0-36.0) Red Cell Distribution Width 10.9 % (11.6-14.8) Platelet Count 325 K/UL (150-450) Mean Platelet Volume 5.3 FL (6.5-10.1) Neutrophils (%) (Auto) 55.8 % (45.0-75.0) Lymphocytes (%) (Auto) 35.4 % (20.0-45.0) Monocytes (%) (Auto) 7.0 % (1.0-10.0) Eosinophils (%) (Auto) 1.1 % (0.0-3.0) Basophils (%) (Auto) 0.8 % (0.0-2.0) Sodium Level 132 MMOL/L (136-145) 133 MMOL/L (136-145) Potassium Level 3.8 MMOL/L (3.5-5.1) 4.0 MMOL/L (3.5-5.1) Chloride Level 98 MMOL/L (98-107) 101 MMOL/L (98-107) Carbon Dioxide Level 28 MMOL/L (21-32) 28 MMOL/L (21-32) Anion Gap 6 mmol/L (5-15) 4 mmol/L (5-15) Blood Urea Nitrogen 16 mg/dL (7-18) 16 mg/dL (7-18) Creatinine 0.8 MG/DL (0.55-1.30) 0.5 MG/DL (0.55-1.30) Estimat Glomerular Filtration Rate mL/min (>60) mL/min (>60) Glucose Level 168 MG/DL (74-106) 196 MG/DL (74-106) Calcium Level 8.8 MG/DL (8.5-10.1) 8.6 MG/DL (8.5-10.1) Magnesium Level 2.0 MG/DL (1.8-2.4) Total Bilirubin 0.4 MG/DL (0.2-1.0) 0.3 MG/DL (0.2-1.0) Aspartate Amino Transf (AST/SGOT) 14 U/L (15-37) 18 U/L (15-37) Alanine Aminotransferase (ALT/SGPT) 19 U/L (12-78) 18 U/L (12-78) Alkaline Phosphatase 50 U/L (46-116) 48 U/L (46-116) Total Protein 7.2 G/DL (6.4-8.2) 7.3 G/DL (6.4-8.2) Albumin 3.3 G/DL (3.4-5.0) 3.2 G/DL (3.4-5.0) Globulin 3.9 g/dL 4.1 g/dL Albumin/Globulin Ratio 0.8 (1.0-2.7) 0.8 (1.0-2.7) Height (Feet): 5 Height (Inches): 4.00 Weight (Pounds): 125 Objective WDWN NAD clear breath sounds bilaterally without rhonchi or wheeze [id number] without MRG NABS nontender no HSM no CCE nonfocal Indio Mckeon MD Jan 05, 2018 08:19
[2018-01-05 12:00] VITALS: BP 157/72
[2018-01-05] MEDS ORDERED: Atorvastatin 20mg tab ORAL SCH (21:00)
--- NOTE | 2018-01-07 03:00 | Progress Note ---
DATE: 01/05/2018 CARDIOLOGY PROGRESS NOTE Late entry for 01/05/2018. SUBJECTIVE: The patient without new complaints. No chest pain. No shortness of breath. OBJECTIVE: VITAL SIGNS: Blood pressure 147/76, pulse 65, and respiratory rate 20. NECK: Supple. LUNGS: Clear. CARDIAC: Regular rhythm and rate. Normal S1, S2 with a fourth heart sound. ABDOMEN: Soft. EXTREMITIES: No edema. LABORATORY DATA: Labs from yesterday were noted. IMPRESSION: 1. Hypovolemia and dehydration, resolved with hyponatremia, adequately corrected. 2. Hypertensive heart disease with stabilized blood pressure range and resolved hypertensive urgency. 3. No signs of congestive heart failure clinically and no evidence of acute myocardial ischemia. PLAN: 1. Stable for outpatient cardiovascular management on current regimen. 2. May consider further outpatient up titration of antihypertensive medications depending on clinical parameters. 3. No salt restriction advised. Yimi Salazar M.D. DR: LICHA JOB#: [id number] CC:
--- NOTE | 2018-01-07 12:12 | Discharge Summary ---
Discharge Summary Discharge Summary _ DATE OF ADMISSION: 01/01/2018 DATE OF DISCHARGE: 01/05/2018 REASON FOR ADMISSION: 77 years old female with past medical history of diabetes, hypertension, lower extremity weakness, wheelchair bound, presented from assisted living with complaint of chest pain. No fever, no chills. No nausea ,no vomiting. No cough, no congestion. Upon evaluation vital signs reveal elevated blood pressure 170/90. Pulse oximetry was stable on room air. Laboratory workup revealed no leukocytosis, stable hemoglobin and hematocrit. Sodium -126. Renal parameters stable. Troponin negative. EKG revealed sinus rhythm, no acute ischemic changes. Urinalysis revealed evidence of UTI. Patient admitted with diagnoses of chest pain, rule out acute coronary syndrome , diabetes mellitus, hyponatremia ,hypertensive urgency, urinary tract infection , possible dehydration with hypovolemia. CONSULTANTS: speech communication instructor Dr. Salazar [facility] COURSE: Patient admitted to telemetry floor. Serial troponin were negative. Patient was followed up with EKG which again revealed no acute ischemic changes. Patient was therefore ruled out for acute myocardial infarction. Patient started on beta blockers and antiplatelet therapy with Plavix. Nitrates provided as needed. Pediatric Oncology Nurse closely followed. Echocardiogram revealed preserved ejection fraction of 65-70%, no wall motion abnormalities. Right ventricular systolic pressure of 15. Per speech communication instructor patient had diastolic dysfunction with no clinical signs of acute congestive heart failure. Blood pressure was managed with beta kaitlin and calcium channel kaitlin. Hypertensive urgency resolved. Lipid panel was stable. Statin was continued. Per speech communication instructor, patient had acute coronary syndrome of anginal pattern, which resolved. DVT prophylaxis provided. Supplemental oxygen provided as needed to keep pulse oximetry above 92%. Venous duplex bilateral lower extremity was negative. . Hyponatremia workup initiated, urine studies were obtained. Patient was hydrated with IV saline solution. Volumes status were clsoely monitored. Hyponatremia improved, sodium up to 133 prior to discharge. Urine culture was positive for Klebsiella. Patient was on antibiotic for urinary tract infection. Blood sugar was managed with sliding scale of insulin , and remained stable. DVT and GI prophylaxis provided. Patient clinically improved and was ready for discharge. FINAL DIAGNOSES: Acute coronary syndrome, anginal pattern-resolved Hypertensive urgency -resolved Hypertensive heart disease Acute hyponatremia, secondary to dehydration and hypovolemia , improved Diastolic dysfunction, no evidence of acute CHF Diabetes mellitus type 2 Urinary tract infection with Klebsiella DISCHARGE MEDICATIONS: List of medications was sent with patient DISCHARGE INSTRUCTIONS: Patient was discharged to assisted living with home health services to follow. I have been assigned to dictate discharge summary for this account. I was not involved in the patient's management. Maritza Farias NP Jan 07, 2018 12:12
--- NOTE | 2018-01-07 20:28 | Diagnostic Imaging Report ---
APPROVED REPORT CPT Code: 62201 Present Symptoms Comments: CHEST PAIN BILATERAL: Imaging reveals a patent deep venous system bilaterally. There is no evidence of thrombus within the femoral, popliteal or tibial segments. The greater saphenous veins are also within normal limits. Doppler indicates normal spontaneous flow within these segments.
== END 2018-01-05 16:09 | disposition home or self-care (01) | DRG 311 ==
LOC: EDSEX 12:15 → EDBD 12:15 → EMR 12:45 → EDBEDREQ 13:54 → 2E 14:20 → EDBEDREQ 14:25 → 2E 16:45
DX: I24.9 Acute ischemic heart disease, unspecified (principal); E87.1 Hypo-osmolality and hyponatremia; N39.0 Urinary tract infection, site not specified; E44.1 Mild protein-calorie malnutrition; I16.0 Hypertensive urgency; Z88.6 Allergy status to analgesic agent; E11.9 Type 2 diabetes mellitus without complications; Z90.710 Acquired absence of both cervix and uterus; Z99.3 Dependence on wheelchair; I11.9 Hypertensive heart disease without heart failure; B96.1 Klebsiella pneumoniae [K. pneumoniae] as the cause of diseases classified elsewhere; Z79.4 Long term (current) use of insulin; M51.36 Other intervertebral disc degeneration, lumbar region; M19.90 Unspecified osteoarthritis, unspecified site; E78.5 Hyperlipidemia, unspecified; E87.8 Other disorders of electrolyte and fluid balance, not elsewhere classified; E86.1 Hypovolemia
CPT/HCPCS: 36415; 71045; 80048; 80053; 80061; 81003; 82550; 82553; 82962; 83735; 83880; 83935; 84300; 84443; 84484; 85025; 85610; 85730; 86140; 87081; 87086; 87181; 93005; 93306; 93970; 96374; 99285; J1815

== ENCOUNTER 2018-02-17 09:31 | Emergency (ER) | payer MEDICARE, MEDICAID ==
[~2018-02-17] VITALS: Ht 147.3 cm; Wt 63.5 kg
[~2018-02-17 09:31] MED LIST changes: +CREON DR 24,001 EACH PO; +DIOVAN320 MG ORAL; +GLIMEPIRIDE1 MG ORAL; +METFORMIN HCL500 M1 ORAL; +TRESIBA FL100 UNIT/1 SQ
[2018-02-17 09:48] VITALS: BP 160/72
[2018-02-17] MEDS ORDERED: CLOPIDOGREL75 MG ORAL (09:52)
[2018-02-17] MEDS ORDERED: CLONIDINE0.1 MG PO (09:52)
[2018-02-17] MEDS ORDERED: ZOFRAN4 M1 ORAL (09:52)
[2018-02-17] MEDS ORDERED: TRESIBA FL100 UNIT/1 SQ (09:52)
[2018-02-17] MEDS ORDERED: CREON DR 36,001 EACH PO (09:52)
[2018-02-17 10:25] LABS: APPEARANCE,URINE SLIGHTLY CLOUDY; BILIRUBIN, URINE NEGATIVE (NEGATIVE); COLOR,URINE AMBER; GLUCOSE, URINE (UA) 3+ (NEGATIVE); KETONES,URINE 1+ (NEGATIVE); LEUKOCYTE ESTERASE ,URINE 3+ (NEGATIVE); NITRITE,URINE POSITIVE (NEGATIVE); PH,URINE 6.5 (4.5-8.0); PROTEIN,URINE 2+ (NEGATIVE); UROBILINOGEN,URINE NORMAL MG/DL (0.0-1.0)
[2018-02-17] MEDS ORDERED: BACTRIM DS TAB1 EAC1 ORAL (10:39)
[2018-02-17] MEDS ORDERED: Bactrim-DS 1 tab ORAL ONE (10:45)
--- NOTE | 2018-02-17 11:41 | Emergency Room Report ---
History of Present Illness General Chief Complaint: Hypertension Source: Patient Present Illness HPI Patient presents with complaints of high blood pressure Patient was at daycare facility It was noted the patient's blood pressure was high I do not have the specific number Patient otherwise denies any complaints of headache Denies any chest pain or shortness of breath denies any focal weakness Patient self catheterizes herself Denies any fevers denies any neck pain patient reported that she wanted her urine checked for any unknown drugs Allergies: Coded Allergies: ASPIRIN (Verified Allergy, Unknown, 12/25/17) Uncoded Allergies: STEROID (Allergy, Severe, rash, 01/01/18) Patient History Past Medical History: see triage record Pertinent Family History: none Reviewed Nursing Documentation: PMH: Agreed; PSxH: Agreed Nursing Documentation-PMH Past Medical History: No History, Except For Hx Hypertension: Yes - Hyperlipidemia Hx Diabetes: Yes Hx Cancer: No Review of Systems All Other Systems: negative except mentioned in HPI Physical Exam Vital Signs Date Time Temp Pulse Resp B/P (MAP) Pulse Ox O2 Delivery O2 Flow Rate FiO2 02/17/18 09:26 97.5 80 20 176/83 98 Room Air 8.0 Sp02 EP Interpretation: reviewed, normal General Appearance: well appearing, no apparent distress Head: normocephalic, atraumatic Eyes: bilateral eye PERRL, bilateral eye EOMI ENT: hearing grossly normal, normal pharynx, TMs + canals normal, uvula midline Neck: full range of motion, supple, no meningismus, no bony tend Respiratory: lungs clear, normal breath sounds, no rhonchi, no respiratory distress, no retraction, no accessory muscle use Cardiovascular #1: normal peripheral pulses, regular rate, rhythm, no edema, no gallop, no JVD, no murmur Gastrointestinal: normal bowel sounds, non tender, soft, no mass, no organomegaly, non-distended, no guarding, no hernia, no pulsatile mass, no rebound Genitourinary: no CVA tenderness Musculoskeletal: normal inspection Neurologic: oriented x3, responsive, patient centered care specialist III-XII nml as tested, motor strength/ tone normal, sensory intact Psychiatric: mood/affect normal Skin: normal color, no rash, warm/dry, palpation normal Lymphatic: normal inspection, no adenopathy Medical Decision Making Diagnostic Impression: Primary Impression: Hypertension Additional Impression: uti ER Course Patient is awake alert Has a symptomatically hypertension On initial evaluation here blood pressure is 160 systolic Patient on review of records has had a UTI in the past therefore the urine was examined it does show source of infection Patient is not septic does not appear toxic afebrile was initiated on oral antibiotics here I did make contact with the patient's son brendon rodriguez, he is aware of his mom's presentation here and will follow closely as outpatient Labs Test 02/17/18 10:03 Urine Color Maura Urine Appearance Slightly cloudy Urine pH 6.5 (4.5-8.0) Urine Specific [place] 1.010 (1.005-1.035) Urine Protein 2+ (NEGATIVE) Urine Glucose (UA) 3+ (NEGATIVE) Urine Ketones 1+ (NEGATIVE) Urine Blood 1+ (NEGATIVE) Urine Nitrite Positive (NEGATIVE) Urine Bilirubin Negative (NEGATIVE) Urine Ictotest Negative (NEGATIVE) Urine Urobilinogen Normal MG/DL (0.0-1.0) Urine Leukocyte Esterase 3+ (NEGATIVE) Urine RBC 0-2 /HPF (0 - 2) Urine WBC 60-80 /HPF (0 - 2) Urine Squamous Epithelial Cells Occasional /LPF Urine Bacteria Few /HPF (NONE) Urine Opiates Screen Negative (NEGATIVE) Urine Barbiturates Screen Negative (NEGATIVE) Phencyclidine (PCP) Screen Negative (NEGATIVE) Urine Amphetamines Screen Negative (NEGATIVE) Urine Benzodiazepines Screen Negative (NEGATIVE) Urine Cocaine Screen Negative (NEGATIVE) Urine Marijuana (THC) Screen Negative (NEGATIVE) Rhythm Strip Diag. Results EP Interpretation: yes Rate: 67 Rhythm: NSR, no PVC's, no ectopy Last Vital Signs Date Time Temp Pulse Resp B/P (MAP) Pulse Ox O2 Delivery O2 Flow Rate FiO2 02/17/18 09:48 97.5 79 20 160/72 95 Room Air 8.0 Status: improved Disposition: XFER SNF Condition: Improved Scripts Trimethoprim/Sulfamethoxazole 160/800* (BACTRIM DS TABLET*) 1 Each Tablet 1 TAB ORAL Q12H, #14 TAB 0 Refills Prov: Polly Lopez 02/17/18 Referrals: NON PHYSICIAN (PCP) Patient Instructions: Urinary Tract Infection, [id number], Hypertension, Easy -to-Read, Managing Your High Blood Pressure Additional Instructions: Patient is provided with the discharge instructions notified to follow up with primary doctor in the next 2-3 days otherwise return to the er with any worsening symptoms. Please note that this report is being documented using DRAGON technology. This can lead to erroneous entry secondary to incorrect interpretation by the dictating instrument. Polly Lopez DO Feb 17, 2018 11:41
[2018-02-17 11:43] VITALS: BP 143/70
[2018-02-17 12:30] VITALS: BP 130/66
== END 2018-02-17 12:30 ==
LOC: EDBD 09:31 → EMR 10:20
DX: I10 Essential (primary) hypertension (principal); N39.0 Urinary tract infection, site not specified; E11.9 Type 2 diabetes mellitus without complications; E78.5 Hyperlipidemia, unspecified; Z88.6 Allergy status to analgesic agent
CPT/HCPCS: 80307; 81001; 87086; 99284